=== PATIENT | female | born 1960 | race American Indian/Alaskan Native ===

== ENCOUNTER 2018-09-21 15:07 | Inpatient (IN) | payer OTHER, MEDICARE ==
[2018-09-21 17:11] VITALS: BMI 33.6
--- NOTE | 2018-09-21 18:36 | CP.PCM.HP ---
History of Present Illness - History of Present Illness History of Present Illness: 58 yo female with history of previous lumbar spinal fusion (2011) continue to have lower back pain which radiated to the right lower extremity. With the continued lower back pain now radiating to the lower extremity patient had laminectomy on 09/19/2018. She was then transferred to TCU for therapy and recuperation from surgery. Present on Admission - Present on Admission Any Indicators Present on Admission: Yes History of DVT/PE: Yes History of Uncontrolled Diabetes: No Urinary Catheter: No Decubitus Ulcer Present: No Review of Systems - Review of Systems All systems: reviewed and no additional remarkable complaints except (aside from those mentioned above, 12 point system review were negative by me) Past Patient History - Infectious Disease Hx of Infectious Diseases: None - Past Medical History & Family History Past Medical History?: Yes - Past Social History Smoking Status: Former Smoker Chewing Tobacco Use: No Cigar Use: No Alcohol: Occasional - CARDIAC Hx Cardiac Disorders: Yes (dvt age 20 post ) - PULMONARY Hx Respiratory Disorders: No - NEUROLOGICAL Hx Neurological Disorder: Yes Other/Comment: NUMBNESS TINGLING HANDS - HEENT Hx HEENT Problems: Yes (eyeglasses) Other/Comment: FLOATERS IN EYES for past 5 yrs - RENAL Hx Chronic Kidney Disease: Yes Hx Kidney Stones: Yes (PASSED WITHOUT SURGERY) - ENDOCRINE/METABOLIC Hx Endocrine Disorders: No - HEMATOLOGICAL/ONCOLOGICAL Hx Blood Disorders: Yes Hx AIDS: No Hx Anemia: Yes (blood transfusion) Hx Blood Transfusions: Yes (FOR POST MENOPAUSAL BLEEDING ) Hx Human Immunodeficiency Virus (HIV): No Other/Comment: blood transfusion for post menapausal bleeding , hx of abnormal periods - INTEGUMENTARY Hx Dermatological Problems: No - MUSCULOSKELETAL/RHEUMATOLOGICAL Hx Musculoskeletal Disorders: Yes (r ft drop and drag) Hx Back Pain: Yes Hx Falls: Yes Hx Herniated Disk: Yes (DISPLACEMENT) Other/Comment: Back surgery/fusion of l4 l5 and l5 and s1 01/02/14 at [facility]. L knee sx, multiple epidurals b/l back pain radiates to lower extremities down to ankles, chronic back pain since 2011 when pt fell at work, pt has rods and screws, left knee arthroscopic sx 2012, left knee total knee replacement 2013, rle thigh pain - GASTROINTESTINAL Hx Gastrointestinal Disorders: No - GENITOURINARY/GYNECOLOGICAL Hx Genitourinary Disorders: Yes Other/Comment: d&c x4 due to abnormal periods, hysterectomy - PSYCHIATRIC Hx Psychophysiologic Disorder: No Hx Depression: No Hx Emotional Abuse: No Hx Physical Abuse: No Hx Substance Use: No - SURGICAL HISTORY Hx Surgeries: Yes Hx Appendectomy: Yes Hx Arthroscopy: Yes (LEFT KNEE 2012) Hx Dilation and Curettage: Yes Hx Hysterectomy: Yes Other/Comment: lumbar laminectomy - ANESTHESIA Hx Anesthesia: Yes Hx Anesthesia Reactions: No Hx Malignant Hyperthermia: No Meds Allergies/Adverse Reactions: Allergies Allergy/AdvReac Type Severity Reaction Status Date / Time No Known Allergies Allergy Verified 09/21/18 17:08 Physical Exam - Constitutional Appears: No Acute Distress - Head Exam Head Exam: ATRAUMATIC - Eye Exam Eye Exam: absent: Scleral icterus - ENT Exam ENT Exam: Mucous Membranes Moist - Neck Exam Neck exam: Negative for: Meningismus - Respiratory Exam Respiratory Exam: absent: Rales, Rhonchi, Wheezes, Respiratory Distress - Cardiovascular Exam Cardiovascular Exam: REGULAR RHYTHM, +S1, +S2 - GI/Abdominal Exam GI & Abdominal Exam: Soft. absent: Tenderness - Rectal Exam Rectal Exam: Deferred - Neurological Exam Neurological exam: Alert, Oriented x3 - Psychiatric Exam Psychiatric exam: Normal Affect - Skin Skin Exam: Dry, Intact Results - Vital Signs Recent Vital Signs: Last Vital Signs Temp Pulse 72 09/21/18 17:23 Resp BP Pulse Ox Assessment & Plan (1) Status post laminectomy Status: Acute Comment: PT evaluation and management. pain management
[2018-09-21] MEDS: Oxycodone/Acetaminophen 5/325 mg Tab PO PRN (20:00)
[2018-09-21] MEDS: oxyCODONE 20 mg ER Tab (oxyCONTIN) PO SCH (21:20)
[2018-09-22] MEDS: Oxycodone/Acetaminophen 5/325 mg Tab PO PRN ×4 (01:36→17:54)
[2018-09-22 06:46] LABS: BASO # 0.1 K/uL (0.0-0.2); BASO % 0.8 % (0.0-2.0); EOS # 0.1 K/uL (0.0-0.7); EOS % 1.8 % (0.0-4.0); HEMOGLOBIN 12.1 g/dL (12.0-16.0); LYMPH # 3.4 K/uL (1.0-4.3); LYMPH % 54.2 % (20.0-40.0); MEAN CELL VOLUME 86.6 fl (81.0-99.0); MEAN CORPUSCULAR HEMOGLOBIN 27.3 pg (27.0-31.0); MEAN CORPUSCULAR HGB CONC 31.5 g/dL (33.0-37.0); MEAN PLATELET VOLUME 9.2 fl (7.2-11.7); MONO # 0.7 K/uL (0.0-0.8); MONO % 10.6 % (0.0-10.0); NEUT # 2.1 K/uL (1.8-7.0); NEUT % 32.6 % (50.0-75.0); NRBC % 0.1 % (0.0-0.0); RBC 4.41 Mil/uL (3.80-5.20); RED CELL DISTRIBUTION WIDTH 14.1 % (11.5-14.5); WHITE BLOOD COUNT 6.3 K/uL (4.8-10.8)
[2018-09-22 07:05] LABS: BLOOD UREA NITROGEN 18 mg/dl (7-17); CALCIUM 9.3 mg/dL (8.4-10.2); GFR NON-AFRICAN AMERICAN > 60
[2018-09-22] MEDS: oxyCODONE 20 mg ER Tab (oxyCONTIN) PO SCH ×2 (09:42→21:03)
[2018-09-23] MEDS: Oxycodone/Acetaminophen 5/325 mg Tab PO PRN ×3 (02:09→13:45)
[2018-09-23] MEDS: oxyCODONE 20 mg ER Tab (oxyCONTIN) PO SCH ×2 (08:27→20:06)
[2018-09-24] MEDS: Oxycodone/Acetaminophen 5/325 mg Tab PO PRN ×4 (00:26→23:16)
[2018-09-24] MEDS: oxyCODONE 20 mg ER Tab (oxyCONTIN) PO SCH ×2 (08:26→20:03)
[2018-09-25] MEDS: Oxycodone/Acetaminophen 5/325 mg Tab PO PRN ×4 (07:54→21:53)
[2018-09-25] MEDS: oxyCODONE 20 mg ER Tab (oxyCONTIN) PO SCH ×2 (09:03→20:11)
[2018-09-25] MEDS ORDERED: Alum-Mag Hydrox-Simethicone Susp (30 mL) PO ONE (21:57)
[2018-09-25] MEDS: Pantoprazole 40 mg EC Tab PO SCH (23:05)
[2018-09-26] MEDS: Oxycodone/Acetaminophen 5/325 mg Tab PO PRN ×2 (04:07→11:30)
[2018-09-26] MEDS: oxyCODONE 20 mg ER Tab (oxyCONTIN) PO SCH ×2 (08:02→21:21)
[2018-09-26] MEDS: Pantoprazole 40 mg EC Tab PO SCH (08:03)
--- NOTE | 2018-09-26 10:47 | CP.PCM.PN ---
Subjective - Date & Time of Evaluation Date of Evaluation: 09/26/18 Time of Evaluation: 10:15 - Subjective Subjective: Patient seen and examined. Complained of sore on the right upper lip and base of left nares starting yesterday. Also complained that her back pain did not improve post laminectomy. Objective - Vital Signs/Intake and Output Vital Signs (last 24 hours): Temp Pulse Resp BP Pulse Ox 97.6 F 62 20 116/81 98 09/26/18 08:01 09/26/18 08:01 09/26/18 08:01 09/26/18 08:01 09/26/18 08:01 - Medications Medications: Current Medications Acetaminophen (Tylenol 325mg Tab) 650 mg PO Q6 PRN PRN Reason: Headache Acyclovir (Zovirax 5% Oint) 1 applic EXT Q3 [facility] Diphenhydramine HCl (Benadryl) 25 mg PO Q6 PRN PRN Reason: Itching / Pruritus Last Admin: 09/25/18 01:38 Dose: 25 mg Lactulose (Enulose) 20 gm PO DAILY PRN PRN Reason: Constipation Last Admin: 09/25/18 06:59 Dose: 20 gm Ondansetron HCl (Zofran Inj) 4 mg IVP Q6 PRN PRN Reason: Nausea/Vomiting Oxycodone HCl (Oxycontin Extended Release Tab) 20 mg PO Q12 [facility] Last Admin: 09/26/18 08:02 Dose: 20 mg Oxycodone/Acetaminophen (Percocet 5/325 Mg Tab) 1 tab PO Q4 PRN PRN Reason: Pain, severe (8-10) Stop: 09/27/18 21:32 Last Admin: 09/26/18 04:07 Dose: 1 tab Pantoprazole Sodium (Protonix Ec Tab) 40 mg PO DAILY [facility] Last Admin: 09/26/18 08:03 Dose: 40 mg - Labs Labs: 09/22/18 05:50 09/22/18 05:50 - Constitutional Appears: No Acute Distress - Head Exam Head Exam: ATRAUMATIC - Eye Exam Eye Exam: absent: Scleral icterus - ENT Exam ENT Exam: absent: Normal Exam (swelling on right upper lip and base of left nose) - Neck Exam Neck Exam: absent: Lymphadenopathy - Respiratory Exam Respiratory Exam: absent: Rales, Rhonchi, Wheezes, Respiratory Distress - Cardiovascular Exam Cardiovascular Exam: REGULAR RHYTHM, +S1, +S2 - GI/Abdominal Exam GI & Abdominal Exam: Soft. absent: Tenderness - Rectal Exam Rectal Exam: Deferred - Neurological Exam Neurological Exam: Alert, Oriented x3 - Psychiatric Exam Psychiatric exam: Normal Affect - Skin Skin Exam: Dry, Intact Assessment and Plan - Assessment and Plan (Free Text) Assessment: 58 yo female with history of lower back pain continued to have pain in spite of lumbar spinal fusion in 2011. Patient had laminectomy on 09/19/2018 and was transferred to TCU for therapy and pain management. 1. Post Laminectomy refer to Dr Dye for pain management continue PT/OT 2. Herpez Labialis Zyclovir cream apply q 3hrs
[2018-09-26] MEDS ORDERED: Acyclovir 5% OINT 15 APPLIC/15 GM EXT SCH (13:00)
[2018-09-26] MEDS: Acyclovir 5% OINT 15 APPLIC/15 GM EXT SCH ×3 (13:00→21:00)
--- NOTE | 2018-09-26 14:49 | CP.PCM.CON ---
History of Present Illness - History of Present Illness History of Present Illness: Dr Dye PMR consultation on Mikael Deras, born 1960 who has been admitted to [facility] TCU s/p lumbar surgery with Dr Andrews L3/4 laminectomy and foraminectomy. Past lumbar surgery in 2014 did not lead to significant relief. Post op now with severe left radicular pain into the calf and leg. She had used a cane for ambulation. No toxic use of ETOH or Drugs or tobacco Review of Systems - Constitutional Constitutional: absent: Anorexia - EENT Eyes: absent: Blurred Vision Ears: absent: Ear Discharge, Ear Pain Nose/Mouth/Throat: absent: Nasal Congestion - Cardiovascular Cardiovascular: absent: Chest Pain - Respiratory Respiratory: absent: Dyspnea, Hemoptysis - Gastrointestinal Gastrointestinal: Constipation (3-4 days) - Musculoskeletal Musculoskeletal: Back Pain - Integumentary Integumentary: absent: Bleeding Lesions - Neurological Neurological: Weakness (right foot/ankle from 2014 surgery and pain inhibited weakness now). absent: Abnormal Hearing, Abnormal Movements - Psychiatric Psychiatric: absent: Anxiety Past Patient History - Infectious Disease Hx of Infectious Diseases: None - Past Medical History & Family History Past Medical History?: Yes - Past Social History Smoking Status: Former Smoker Chewing Tobacco Use: No Cigar Use: No Alcohol: Occasional Drugs: Denies Home Situation {Lives}: Alone - CARDIAC Hx Cardiac Disorders: Yes (dvt age 20 post ) - PULMONARY Hx Respiratory Disorders: No - NEUROLOGICAL Hx Neurological Disorder: Yes Other/Comment: NUMBNESS TINGLING HANDS - HEENT Hx HEENT Problems: Yes (eyeglasses) Other/Comment: FLOATERS IN EYES for past 5 yrs - RENAL Hx Chronic Kidney Disease: Yes Hx Kidney Stones: Yes (PASSED WITHOUT SURGERY) - ENDOCRINE/METABOLIC Hx Endocrine Disorders: No - HEMATOLOGICAL/ONCOLOGICAL Hx Blood Disorders: Yes Hx AIDS: No Hx Anemia: Yes (blood transfusion) Hx Blood Transfusions: Yes (FOR POST MENOPAUSAL BLEEDING ) Hx Human Immunodeficiency Virus (HIV): No Other/Comment: blood transfusion for post menapausal bleeding , hx of abnormal periods - INTEGUMENTARY Hx Dermatological Problems: No - MUSCULOSKELETAL/RHEUMATOLOGICAL Hx Musculoskeletal Disorders: Yes (r ft drop and drag) Hx Back Pain: Yes Hx Falls: Yes Hx Herniated Disk: Yes (DISPLACEMENT) Other/Comment: Back surgery/fusion of l4 l5 and l5 and s1 01/02/14 at [facility]. L knee sx, multiple epidurals b/l back pain radiates to lower extremities down to ankles, chronic back pain since 2011 when pt fell at work, pt has rods and screws, left knee arthroscopic sx 2012, left knee total knee replacement 2013, rle thigh pain - GASTROINTESTINAL Hx Gastrointestinal Disorders: No - GENITOURINARY/GYNECOLOGICAL Hx Genitourinary Disorders: Yes Other/Comment: d&c x4 due to abnormal periods, hysterectomy - PSYCHIATRIC Hx Psychophysiologic Disorder: No Hx Depression: No Hx Emotional Abuse: No Hx Physical Abuse: No Hx Substance Use: No - SURGICAL HISTORY Hx Surgeries: Yes Hx Appendectomy: Yes Hx Arthroscopy: Yes (LEFT KNEE 2012) Hx Dilation and Curettage: Yes Hx Hysterectomy: Yes Other/Comment: lumbar laminectomy - ANESTHESIA Hx Anesthesia: Yes Hx Anesthesia Reactions: No Hx Malignant Hyperthermia: No Meds Allergies/Adverse Reactions: Allergies Allergy/AdvReac Type Severity Reaction Status Date / Time No Known Allergies Allergy Verified 09/21/18 17:08 - Medications Medications: Current Medications Acetaminophen (Tylenol 325mg Tab) 650 mg PO Q6 PRN PRN Reason: Headache Acyclovir (Zovirax 5% Oint) 1 applic EXT Q4 [facility] Diphenhydramine HCl (Benadryl) 25 mg PO Q6 PRN PRN Reason: Itching / Pruritus Last Admin: 09/25/18 01:38 Dose: 25 mg Ketorolac Tromethamine (Toradol) 60 mg IM STAT STA Stop: 09/26/18 14:48 Lactulose (Enulose) 20 gm PO DAILY PRN PRN Reason: Constipation Last Admin: 09/25/18 06:59 Dose: 20 gm Nortriptyline HCl (Pamelor) 20 mg PO HS [facility] Ondansetron HCl (Zofran Inj) 4 mg IVP Q6 PRN PRN Reason: Nausea/Vomiting Oxycodone HCl (Oxycontin Extended Release Tab) 20 mg PO Q12 [facility] Last Admin: 09/26/18 08:02 Dose: 20 mg Oxycodone/Acetaminophen (Percocet 5/325 Mg Tab) 1 tab PO Q4 PRN PRN Reason: Pain, severe (8-10) Stop: 09/27/18 21:32 Last Admin: 09/26/18 11:30 Dose: 1 tab Pantoprazole Sodium (Protonix Ec Tab) 40 mg PO DAILY [facility] Last Admin: 09/26/18 08:03 Dose: 40 mg Pregabalin (Lyrica) 150 mg PO TID [facility] Tizanidine HCl (Zanaflex) 2 mg PO Q8 [facility] Physical Exam - Constitutional Appears: In Acute Distress - Head Exam Head Exam: ATRAUMATIC, NORMAL INSPECTION, NORMOCEPHALIC - Eye Exam Eye Exam: EOMI - ENT Exam ENT Exam: Mucous Membranes Moist - Respiratory Exam Respiratory Exam: NORMAL BREATHING PATTERN - Cardiovascular Exam Cardiovascular Exam: REGULAR RHYTHM - GI/Abdominal Exam GI & Abdominal Exam: absent: Firm - Extremities Exam Extremities exam: Positive for: calf tenderness (and swelling) - Neurological Exam Neurological exam: Alert, CN II-XII Intact, Oriented x3 - Psychiatric Exam Psychiatric exam: Normal Affect, Normal Mood - Skin Skin Exam: Warm Results - Vital Signs Recent Vital Signs: Last Vital Signs Temp 97.6 F 09/26/18 08:01 Pulse 62 09/26/18 09:00 Resp 20 09/26/18 08:01 BP 138/87 09/26/18 09:00 Pulse Ox 98 09/26/18 09:00 - Labs Result Diagrams: 09/22/18 05:50 09/22/18 05:50 Labs: Laboratory Results - last 24 hr 09/25/18 09/26/18 22:00 05:30 Troponin I < 0.0120 < 0.0120 Assessment & Plan - Assessment and Plan (Free Text) Assessment: 58 year old female with left lumbar radicular symptoms post L3/4 laminectomy/foraminectomy Left leg is swollen and tender. I will order a doppler for acute pain will given injection of Toradol 60mg now I will try and reach surgeon to get approval for a steroid taper to help post op swelling on Lyrica and Oxycodone for pain and Zanaflex
--- NOTE | 2018-09-26 18:47 | CARD ---
APPROVED REPORT Date of service: 09/25/2018 EKG Measurement Heart [id number] <Conclusion> Normal sinus rhythm Possible Septal infarct, age undetermined Abnormal ECG
[2018-09-27] MEDS: Acyclovir 5% OINT 15 APPLIC/15 GM EXT SCH ×6 (01:00→21:11)
[2018-09-27] MEDS: oxyCODONE 20 mg ER Tab (oxyCONTIN) PO SCH ×2 (08:18→21:13)
[2018-09-27] MEDS: Pantoprazole 40 mg EC Tab PO SCH (08:19)
[2018-09-27 16:20] VITALS: RESP 20
[2018-09-27] MEDS: Oxycodone/Acetaminophen 5/325 mg Tab PO PRN (18:52)
--- NOTE | 2018-09-27 19:16 | CP.PCM.PN ---
Subjective - Date & Time of Evaluation Date of Evaluation: 09/27/18 Time of Evaluation: 19:15 - Subjective Subjective: Patient seen in the room visitors present so much better pain is controlled and reduced radicular symptoms evidence of old DVT no active issue. Objective - Vital Signs/Intake and Output Vital Signs (last 24 hours): Temp Pulse Resp BP Pulse Ox 98.2 F 78 20 135/85 97 09/27/18 16:20 09/27/18 16:20 09/27/18 16:20 09/27/18 16:20 09/27/18 16:20 - Medications Medications: Current Medications Acetaminophen (Tylenol 325mg Tab) 650 mg PO Q6 PRN PRN Reason: Headache Acyclovir (Zovirax 5% Oint) 1 applic EXT Q4 [facility] Last Admin: 09/27/18 17:47 Dose: 1 applic Diphenhydramine HCl (Benadryl) 25 mg PO Q6 PRN PRN Reason: Itching / Pruritus Last Admin: 09/25/18 01:38 Dose: 25 mg Docusate Sodium (Colace) 100 mg PO TID [facility] Last Admin: 09/27/18 17:46 Dose: 100 mg Lactulose (Enulose) 20 gm PO DAILY PRN PRN Reason: Constipation Last Admin: 09/26/18 16:27 Dose: 20 gm Nortriptyline HCl (Pamelor) 20 mg PO HS [facility] Last Admin: 09/26/18 21:48 Dose: 20 mg Ondansetron HCl (Zofran Inj) 4 mg IVP Q6 PRN PRN Reason: Nausea/Vomiting Oxycodone HCl (Oxycontin Extended Release Tab) 20 mg PO Q12 [facility] Last Admin: 09/27/18 08:18 Dose: 20 mg Oxycodone/Acetaminophen (Percocet 5/325 Mg Tab) 1 tab PO Q4 PRN PRN Reason: Pain, severe (8-10) Stop: 09/27/18 21:32 Last Admin: 09/27/18 18:52 Dose: 1 tab Oxycodone/Acetaminophen (Percocet 5/325 Mg Tab) 1 tab PO Q4 PRN PRN Reason: Pain, severe (8-10) Stop: 09/30/18 12:27 Pantoprazole Sodium (Protonix Ec Tab) 40 mg PO DAILY [facility] Last Admin: 09/27/18 08:19 Dose: 40 mg Prednisone (Prednisone Tab) 30 mg PO Q24H [facility] Stop: 09/29/18 18:26 Prednisone (Prednisone Tab) 20 mg PO Q24H [facility] Stop: 10/01/18 18:26 Prednisone (Prednisone Tab) 10 mg PO Q24H [facility] Stop: 10/03/18 18:26 Pregabalin (Lyrica) 150 mg PO TID [facility] Last Admin: 09/27/18 17:47 Dose: 150 mg Tizanidine HCl (Zanaflex) 2 mg PO Q8 [facility] Last Admin: 09/27/18 17:47 Dose: 2 mg - Labs Labs: 09/22/18 05:50 09/22/18 05:50
[2018-09-28] MEDS: Acyclovir 5% OINT 15 APPLIC/15 GM EXT SCH ×6 (02:00→21:00)
[2018-09-28] MEDS: Pantoprazole 40 mg EC Tab PO SCH (08:15)
[2018-09-28] MEDS: oxyCODONE 20 mg ER Tab (oxyCONTIN) PO SCH ×2 (08:15→21:30)
--- NOTE | 2018-09-28 13:19 | CP.PCM.PN ---
Subjective - Date & Time of Evaluation Date of Evaluation: 09/28/18 Time of Evaluation: 13:08 - Subjective Subjective: Patient seen and examined. Claimed lesion on right upper lip is getting smaller. Back pain also has improved. Objective - Vital Signs/Intake and Output Vital Signs (last 24 hours): Temp Pulse Resp BP Pulse Ox 97.7 F 69 20 137/84 98 09/28/18 08:13 09/28/18 08:13 09/28/18 08:13 09/28/18 08:13 09/28/18 08:13 - Medications Medications: Current Medications Acetaminophen (Tylenol 325mg Tab) 650 mg PO Q6 PRN PRN Reason: Headache Acyclovir (Zovirax 5% Oint) 1 applic EXT Q4 [facility] Last Admin: 09/28/18 12:25 Dose: 1 applic Diphenhydramine HCl (Benadryl) 25 mg PO Q6 PRN PRN Reason: Itching / Pruritus Last Admin: 09/25/18 01:38 Dose: 25 mg Docusate Sodium (Colace) 100 mg PO TID [facility] Last Admin: 09/28/18 12:22 Dose: 100 mg Lactulose (Enulose) 20 gm PO DAILY PRN PRN Reason: Constipation Last Admin: 09/26/18 16:27 Dose: 20 gm Nortriptyline HCl (Pamelor) 20 mg PO HS [facility] Last Admin: 09/27/18 21:12 Dose: 20 mg Ondansetron HCl (Zofran Inj) 4 mg IVP Q6 PRN PRN Reason: Nausea/Vomiting Oxycodone HCl (Oxycontin Extended Release Tab) 20 mg PO Q12 [facility] Last Admin: 09/28/18 08:15 Dose: 20 mg Oxycodone/Acetaminophen (Percocet 5/325 Mg Tab) 1 tab PO Q4 PRN PRN Reason: Pain, severe (8-10) Stop: 09/30/18 12:27 Pantoprazole Sodium (Protonix Ec Tab) 40 mg PO DAILY [facility] Last Admin: 09/28/18 08:15 Dose: 40 mg Prednisone (Prednisone Tab) 30 mg PO Q24H [facility] Stop: 09/29/18 18:26 Prednisone (Prednisone Tab) 20 mg PO Q24H [facility] Stop: 10/01/18 18:26 Prednisone (Prednisone Tab) 10 mg PO Q24H [facility] Stop: 10/03/18 18:26 Pregabalin (Lyrica) 150 mg PO TID [facility] Last Admin: 09/28/18 12:22 Dose: 150 mg Tizanidine HCl (Zanaflex) 2 mg PO Q8 [facility] Last Admin: 09/28/18 08:16 Dose: 2 mg - Labs Labs: 09/22/18 05:50 09/22/18 05:50 - Constitutional Appears: No Acute Distress - Head Exam Head Exam: ATRAUMATIC - Eye Exam Eye Exam: absent: Scleral icterus - ENT Exam ENT Exam: Mucous Membranes Moist (lesion on right upper lip less evident) - Neck Exam Neck Exam: absent: Lymphadenopathy - Respiratory Exam Respiratory Exam: absent: Rales, Rhonchi, Wheezes, Respiratory Distress - Cardiovascular Exam Cardiovascular Exam: REGULAR RHYTHM, +S1, +S2 - GI/Abdominal Exam GI & Abdominal Exam: Soft. absent: Tenderness - Rectal Exam Rectal Exam: Deferred - Extremities Exam Extremities Exam: absent: Pedal Edema - Neurological Exam Neurological Exam: Alert, Oriented x3 - Psychiatric Exam Psychiatric exam: Normal Affect - Skin Skin Exam: Dry, Intact Assessment and Plan - Assessment and Plan (Free Text) Assessment: 58 yo female with history of lower back pain continued to have pain in spite of lumbar spinal fusion in 2011. Patient had laminectomy on 09/19/2018 and was transferred to TCU for therapy and pain management. 1. Post Laminectomy Dr Dye consulted for pain management patient admitted pain had diminished continue PT/OT 2. Herpez Labialis lesion on right side of upper lip subsiding continue Zyclovir cream apply q 3hrs x 6/day
[2018-09-28] MEDS: Oxycodone/Acetaminophen 5/325 mg Tab PO PRN ×2 (13:45→18:01)
[2018-09-29] MEDS: Acyclovir 5% OINT 15 APPLIC/15 GM EXT SCH ×6 (01:00→21:49)
[2018-09-29] MEDS: Pantoprazole 40 mg EC Tab PO SCH (08:29)
[2018-09-29] MEDS: oxyCODONE 20 mg ER Tab (oxyCONTIN) PO SCH ×2 (08:33→21:47)
[2018-09-29] MEDS: Oxycodone/Acetaminophen 5/325 mg Tab PO PRN ×2 (11:12→17:18)
--- NOTE | 2018-09-29 15:27 | CP.PCM.PN ---
Subjective - Date & Time of Evaluation Date of Evaluation: 09/29/18 Time of Evaluation: 15:26 - Subjective Subjective: Patient seen in the room, doing well much better and more relaxed since steroid taper still with left LE radicular symptoms, but very manageable PT to eval for stim to right ankle for weakness and consider AFO management Objective - Vital Signs/Intake and Output Vital Signs (last 24 hours): Temp Pulse Resp BP Pulse Ox 98.4 F 63 20 117/74 98 09/29/18 11:30 09/29/18 11:30 09/29/18 11:30 09/29/18 11:30 09/29/18 11:30 - Medications Medications: Current Medications Acetaminophen (Tylenol 325mg Tab) 650 mg PO Q6 PRN PRN Reason: Headache Acyclovir (Zovirax 5% Oint) 1 applic EXT Q4 [facility] Last Admin: 09/29/18 13:56 Dose: 1 applic Diphenhydramine HCl (Benadryl) 25 mg PO Q6 PRN PRN Reason: Itching / Pruritus Last Admin: 09/25/18 01:38 Dose: 25 mg Docusate Sodium (Colace) 100 mg PO TID [facility] Last Admin: 09/29/18 13:55 Dose: 100 mg Lactulose (Enulose) 20 gm PO DAILY PRN PRN Reason: Constipation Last Admin: 09/29/18 08:29 Dose: 20 gm Nortriptyline HCl (Pamelor) 20 mg PO HS [facility] Last Admin: 09/28/18 21:29 Dose: 20 mg Ondansetron HCl (Zofran Inj) 4 mg IVP Q6 PRN PRN Reason: Nausea/Vomiting Oxycodone HCl (Oxycontin Extended Release Tab) 20 mg PO Q12 [facility] Last Admin: 09/29/18 08:33 Dose: 20 mg Oxycodone/Acetaminophen (Percocet 5/325 Mg Tab) 1 tab PO Q4 PRN PRN Reason: Pain, severe (8-10) Stop: 09/30/18 12:27 Last Admin: 09/29/18 11:12 Dose: 1 tab Pantoprazole Sodium (Protonix Ec Tab) 40 mg PO DAILY [facility] Last Admin: 09/29/18 08:29 Dose: 40 mg Prednisone (Prednisone Tab) 30 mg PO Q24H [facility] Stop: 09/29/18 18:26 Last Admin: 09/28/18 17:58 Dose: 30 mg Prednisone (Prednisone Tab) 20 mg PO Q24H [facility] Stop: 10/01/18 18:26 Prednisone (Prednisone Tab) 10 mg PO Q24H [facility] Stop: 10/03/18 18:26 Pregabalin (Lyrica) 150 mg PO TID [facility] Last Admin: 09/29/18 13:55 Dose: 150 mg Tizanidine HCl (Zanaflex) 2 mg PO Q8 [facility] Last Admin: 09/29/18 09:13 Dose: 2 mg - Labs Labs: 09/22/18 05:50 09/22/18 05:50
[2018-09-30] MEDS: Oxycodone/Acetaminophen 5/325 mg Tab PO PRN ×2 (01:12→18:00)
[2018-09-30] MEDS: Acyclovir 5% OINT 15 APPLIC/15 GM EXT SCH ×6 (01:14→21:00)
[2018-09-30] MEDS: oxyCODONE 20 mg ER Tab (oxyCONTIN) PO SCH ×2 (08:24→22:23)
[2018-09-30] MEDS: Pantoprazole 40 mg EC Tab PO SCH (08:25)
[2018-10-01] MEDS: Acyclovir 5% OINT 15 APPLIC/15 GM EXT SCH ×6 (00:43→22:03)
[2018-10-01] MEDS: oxyCODONE 20 mg ER Tab (oxyCONTIN) PO SCH ×2 (09:29→22:03)
[2018-10-01] MEDS: Pantoprazole 40 mg EC Tab PO SCH (09:30)
[2018-10-01] MEDS: Oxycodone/Acetaminophen 5/325 mg Tab PO PRN (15:20)
[2018-10-02] MEDS: Oxycodone/Acetaminophen 5/325 mg Tab PO PRN ×2 (01:47→12:55)
[2018-10-02] MEDS: Acyclovir 5% OINT 15 APPLIC/15 GM EXT SCH ×6 (01:50→21:34)
[2018-10-02] MEDS: oxyCODONE 20 mg ER Tab (oxyCONTIN) PO SCH ×2 (09:09→21:32)
[2018-10-02] MEDS: Pantoprazole 40 mg EC Tab PO SCH (09:09)
--- NOTE | 2018-10-02 18:08 | CP.PCM.PN ---
Subjective - Date & Time of Evaluation Date of Evaluation: 10/02/18 Time of Evaluation: 18:07 - Subjective Subjective: Patient seen in the room notes left radicular pain is starting to creep back more now that the steroid taper is coming to an end I will hold off on re-starting and see how much more this will worsen she is functioning much better nonetheless continue current care Objective - Vital Signs/Intake and Output Vital Signs (last 24 hours): Temp Pulse Resp BP Pulse Ox 97.6 F 75 20 132/84 98 10/02/18 16:33 10/02/18 16:33 10/02/18 16:33 10/02/18 16:33 10/02/18 16:33 - Medications Medications: Current Medications Acetaminophen (Tylenol 325mg Tab) 650 mg PO Q6 PRN PRN Reason: Headache Acyclovir (Zovirax 5% Oint) 1 applic EXT Q4 [facility] Last Admin: 10/02/18 16:23 Dose: 1 applic Diphenhydramine HCl (Benadryl) 25 mg PO Q6 PRN PRN Reason: Itching / Pruritus Last Admin: 09/25/18 01:38 Dose: 25 mg Docusate Sodium (Colace) 100 mg PO TID [facility] Last Admin: 10/02/18 16:20 Dose: 100 mg Lactulose (Enulose) 20 gm PO DAILY [facility] Last Admin: 10/02/18 09:09 Dose: 20 gm Nortriptyline HCl (Pamelor) 20 mg PO HS [facility] Last Admin: 10/01/18 22:04 Dose: 20 mg Ondansetron HCl (Zofran Inj) 4 mg IVP Q6 PRN PRN Reason: Nausea/Vomiting Oxycodone HCl (Oxycontin Extended Release Tab) 20 mg PO Q12 [facility] Last Admin: 10/02/18 09:09 Dose: 20 mg Oxycodone/Acetaminophen (Percocet 5/325 Mg Tab) 1 tab PO Q4 PRN PRN Reason: Pain, severe (8-10) Stop: 10/03/18 17:31 Last Admin: 10/02/18 12:55 Dose: 1 tab Pantoprazole Sodium (Protonix Ec Tab) 40 mg PO DAILY [facility] Last Admin: 10/02/18 09:09 Dose: 40 mg Prednisone (Prednisone Tab) 10 mg PO Q24H [facility] Stop: 10/03/18 18:26 Last Admin: 10/02/18 18:01 Dose: 10 mg Pregabalin (Lyrica) 150 mg PO TID [facility] Last Admin: 10/02/18 16:19 Dose: 150 mg Tizanidine HCl (Zanaflex) 2 mg PO Q8 [facility] Last Admin: 10/02/18 16:20 Dose: 2 mg - Labs Labs: 09/22/18 05:50 09/22/18 05:50
[2018-10-03] MEDS: Acyclovir 5% OINT 15 APPLIC/15 GM EXT SCH ×6 (00:30→21:01)
[2018-10-03] MEDS: Oxycodone/Acetaminophen 5/325 mg Tab PO PRN ×2 (00:46→13:21)
[2018-10-03] MEDS: Pantoprazole 40 mg EC Tab PO SCH (08:26)
[2018-10-03] MEDS: oxyCODONE 20 mg ER Tab (oxyCONTIN) PO SCH ×2 (08:29→21:00)
--- NOTE | 2018-10-03 11:39 | CP.PCM.DIS ---
Provider - Provider Date of Admission: 09/21/18 17:16 Attending physician: Neymar Carrion MD Consults: 09/21/18 17:39 Case Management Referral Routine Comment: Physician Instructions: Reason For Exam: Reason for Referral: Discharge Planning 09/25/18 16:19 Physiatry Consult Routine Comment: Consulting Provider: Leonel Dye Consulting Physician: Leonel Dye Reason for Consult: s/p laminectomy; PT and pain management Time Spent in preparation of Discharge (in minutes): 25 Diagnosis - Discharge Diagnosis (1) Status post laminectomy Status: Acute Comment: improved with therapy and pain management. continue outpatient PT for 4 weeks (2) Herpes labialis Status: Acute Comment: healed. received Azyclovir cream Hospital Course - Lab Results Lab Results: Most Recent Lab Values WBC 6.3 K/uL (4.8-10.8) 09/22/18 05:50 RBC 4.41 Mil/uL (3.80-5.20) 09/22/18 05:50 Hgb 12.1 g/dL (12.0-16.0) 09/22/18 05:50 Hct 38.2 % (34.0-47.0) 09/22/18 05:50 MCV 86.6 fl (81.0-99.0) 09/22/18 05:50 MCH 27.3 pg (27.0-31.0) 09/22/18 05:50 MCHC 31.5 g/dL (33.0-37.0) L 09/22/18 05:50 RDW 14.1 % (11.5-14.5) 09/22/18 05:50 Plt Count 212 K/uL (130-400) 09/22/18 05:50 MPV 9.2 fl (7.2-11.7) 09/22/18 05:50 Neut % (Auto) 32.6 % (50.0-75.0) L 09/22/18 05:50 Lymph % (Auto) 54.2 % (20.0-40.0) H 09/22/18 05:50 Dane % (Auto) 10.6 % (0.0-10.0) H 09/22/18 05:50 Eos % (Auto) 1.8 % (0.0-4.0) 09/22/18 05:50 Baso % (Auto) 0.8 % (0.0-2.0) 09/22/18 05:50 Neut # (Auto) 2.1 K/uL (1.8-7.0) 09/22/18 05:50 Lymph # (Auto) 3.4 K/uL (1.0-4.3) 09/22/18 05:50 Dane # (Auto) 0.7 K/uL (0.0-0.8) 09/22/18 05:50 Eos # (Auto) 0.1 K/uL (0.0-0.7) 09/22/18 05:50 Baso # (Auto) 0.1 K/uL (0.0-0.2) 09/22/18 05:50 Sodium 137 mmol/l (132-148) 09/22/18 05:50 Potassium 3.8 MMOL/L (3.6-5.0) 09/22/18 05:50 Chloride 104 mmol/L (98-107) 09/22/18 05:50 Carbon Dioxide 26 mmol/L (22-30) 09/22/18 05:50 Anion Gap 11 (10-20) 09/22/18 05:50 BUN 18 mg/dl (7-17) H 09/22/18 05:50 Creatinine 0.9 mg/dl (0.7-1.2) 09/22/18 05:50 Est GFR ( Amer) > 60 09/22/18 05:50 Est GFR (Non-Af Amer) > 60 09/22/18 05:50 Random Glucose 105 mg/dL (65-105) 09/22/18 05:50 Calcium 9.3 mg/dL (8.4-10.2) 09/22/18 05:50 Troponin I < 0.0120 ng/mL (0.00-0.120) 09/26/18 05:30 - Hospital Course Hospital Course: 58 yo female with history of previous lumbar spinal fusion (2011) continued to have lower back pain radiating to the right lower extremity. With the u nrelenting low back pain patient was submitted to laminectomy on 09/19/2018. Post surgery she was she was transferred to TCU for continued pain management, recuperation and physical therapy. Patient admitted marked improvement although still with mild but bearable pain. She is discharged from TCU but would continue with outpatient PT for another 4 weeks. During her stay in TCU patient developed Herpez Labialis and was treated with Zyclovir cream for 7 days and improved. Discharge Exam - Head Exam Head Exam: ATRAUMATIC - Eye Exam Eye Exam: absent: Scleral icterus - ENT Exam ENT Exam: Normal Exam (lesion on right lateral aspect of upper lip healed) - Respiratory Exam Respiratory Exam: absent: Rales, Rhonchi, Wheezes, Respiratory Distress - Cardiovascular Exam Cardiovascular Exam: REGULAR RHYTHM, +S1, +S2 - GI/Abdominal Exam GI & Abdominal Exam: Soft. absent: Tenderness - Rectal Exam Rectal Exam: Deferred - Neurological Exam Neurological exam: Alert, Oriented x3 - Skin Skin Exam: Dry, Intact Discharge Plan - Follow Up Plan Condition: GOOD Disposition: HOME/ ROUTINE
--- NOTE | 2018-10-03 17:48 | CP.PCM.PN ---
Subjective - Date & Time of Evaluation Date of Evaluation: 10/03/18 Time of Evaluation: 17:47 - Subjective Subjective: patient seen in the room doing well last dose of Prednisone today has helped weather the storm and calm post op inflammation nicely I will write for a month of medications for pain She has progressed nicely. Objective - Vital Signs/Intake and Output Vital Signs (last 24 hours): Temp Pulse Resp BP Pulse Ox 98.5 F 74 20 131/84 99 10/03/18 16:16 10/03/18 16:16 10/03/18 16:16 10/03/18 16:16 10/03/18 16:16 - Medications Medications: Current Medications Acetaminophen (Tylenol 325mg Tab) 650 mg PO Q6 PRN PRN Reason: Headache Acyclovir (Zovirax 5% Oint) 1 applic EXT Q4 [facility] Last Admin: 10/03/18 16:29 Dose: 1 applic Diphenhydramine HCl (Benadryl) 25 mg PO Q6 PRN PRN Reason: Itching / Pruritus Last Admin: 09/25/18 01:38 Dose: 25 mg Docusate Sodium (Colace) 100 mg PO TID [facility] Last Admin: 10/03/18 16:27 Dose: 100 mg Lactulose (Enulose) 20 gm PO DAILY [facility] Last Admin: 10/03/18 08:25 Dose: 20 gm Nortriptyline HCl (Pamelor) 20 mg PO HS [facility] Last Admin: 10/02/18 21:33 Dose: 20 mg Ondansetron HCl (Zofran Inj) 4 mg IVP Q6 PRN PRN Reason: Nausea/Vomiting Oxycodone HCl (Oxycontin Extended Release Tab) 20 mg PO Q12 [facility] Last Admin: 10/03/18 08:29 Dose: 20 mg Pantoprazole Sodium (Protonix Ec Tab) 40 mg PO DAILY [facility] Last Admin: 10/03/18 08:26 Dose: 40 mg Prednisone (Prednisone Tab) 10 mg PO Q24H [facility] Stop: 10/03/18 18:26 Last Admin: 10/02/18 18:01 Dose: 10 mg Pregabalin (Lyrica) 150 mg PO TID [facility] Last Admin: 10/03/18 16:27 Dose: 150 mg Tizanidine HCl (Zanaflex) 2 mg PO Q8 [facility] Last Admin: 10/03/18 16:27 Dose: 2 mg - Labs Labs: 09/22/18 05:50 09/22/18 05:50
[2018-10-04] MEDS: Acyclovir 5% OINT 15 APPLIC/15 GM EXT SCH ×4 (01:00→12:14)
[2018-10-04] MEDS: Oxycodone/Acetaminophen 5/325 mg Tab PO PRN ×2 (01:05→10:08)
[2018-10-04 08:06] VITALS: BP 131/86; PULSE 86; TEMP 98.1; O2SAT 97
[2018-10-04] MEDS: oxyCODONE 20 mg ER Tab (oxyCONTIN) PO SCH (08:06)
[2018-10-04] MEDS: Pantoprazole 40 mg EC Tab PO SCH (08:07)
== END 2018-10-04 12:52 | disposition home or self-care (01) | DRG 561 ==
LOC: H.TCU 17:16
PROC: F07Z9FZ Gait Training/Functional Ambulation Treatment using Assistive, Adaptive, Supportive or Protective Equipment (ICD-10-PCS; principal; 2018-09-21)
PROC: F07L6GZ Therapeutic Exercise Treatment of Musculoskeletal System - Lower Back / Lower Extremity using Aerobic Endurance and Conditioning Equipment (ICD-10-PCS; 2018-09-21)
PROC: F07 Physical Rehabilitation and Diagnostic Audiology, Rehabilitation, Motor Treatment (ICD-10-PCS; 2018-09-21)
DX: Z47.89 Encounter for other orthopedic aftercare (principal); B00.1 Herpesviral vesicular dermatitis; Z87.891 Personal history of nicotine dependence